=== PATIENT | male | born 1990 | race Caucasian/White ===

== ENCOUNTER 2021-10-22 14:28 | Emergency (ER) | payer OTHER ==
[~2021-10-22] VITALS: Ht 170.2 cm; Wt 110.9 kg
[~2021-10-22 14:28] MED LIST: NO HOME MEDICATIONS
[2021-10-22] MEDS ORDERED: FLEXERIL 1010 MG/TAB PO ×2 (15:02)
[2021-10-22] MEDS ORDERED: NAPROSYN500 MG PO ×2 (15:02)
[2021-10-22 15:28] VITALS: BP 123/79; PULSE 63; TEMP 98.1
== END 2021-10-22 15:28 | disposition home or self-care (01) ==
LOC: COL.ER 14:28
DX: S69.92XA Unspecified injury of left wrist, hand and finger(s), initial encounter (principal); V49.40XA Driver injured in collision with unspecified motor vehicles in traffic accident, initial encounter